=== PATIENT | female | born 1970 | race Caucasian/White ===

== ENCOUNTER → 2016-12-22 | Outpatient (CLI) | payer BC ==
[~2016-12-22] MED LIST: BIRTH CONTROL PILL; CEFDINIR300 MG PO; FLONASE ALLERG9.9 ML; IBUPROFEN PO; IBUPROFEN800 MG PO; KEFLEX250 M1 PO; LODINE400 MG PO; METOPROLOL SUCC25 MG; MULTI-VITAMIN1 TAB PO; OMEPRAZOLE20 M2 PO; PRILOSEC40 MG PO; SINGULAIR PO; SKELAXIN PO; SYMBICORT80 INH; VICODIN 5/1 TAB 5/50 PO; VICODIN PO; ZYRTEC PO; ZYRTEC10 M2 PO
[2016-12-22 12:53] LABS: THYROID STIMULATING HORMONE 2.4 uIU/ml (0.34-5.60)
[2016-12-22 13:00] LABS: FREE THYROXIN (T4) 0.83 ng/dL (0.58-1.64)
[2016-12-22 13:08] LABS: FOLATE (FOLIC ACID) 14.6 ng/mL (>5.8)
[2016-12-26 12:36] LABS: ANA SCREEN Negative (Negative); DHEA SULFATE 70 mcg/dL (19-231); TESTOSTERONE FREE (PNL) 2.3 pg/mL (0.1-6.4); TESTOSTERONE TOTAL(PNL) 19 ng/dL (2-45)
== END | disposition home or self-care (01) ==
LOC: CLAB 10:52
PROVIDERS: Specialist
DX: L65.8 Other specified nonscarring hair loss (principal); L72.0 Epidermal cyst; L85.3 Xerosis cutis; L30.0 Nummular dermatitis; L30.4 Erythema intertrigo; D48.5 Neoplasm of uncertain behavior of skin
CPT/HCPCS: 36415; 82306; 82607; 82626; 82652; 82728; 82746; 84402; 84403; 84439; 84443; 84630; 86038; 86039

== ENCOUNTER → 2016-12-30 | Day surgery (SDC) | payer BC ==
--- NOTE | ~2016-12-30 | OR ---
Unit #: [id number] #: [id number] Patient: NAMITA HOLLIDAY [id number] [address] [id number] O MR#: [id number] NAME: NAMITA HOLLIDAY ROOM: Date of Procedure: 12/30/2016 Admission Date: 12/30/2016 Surgeon: Sachin Anderson M.D. : 1970 Attending Physician: Sachin Anderson M.D. Primary Care Physician: Panchito Rosales M.D. OPERATIVE REPORT PROCEDURES PERFORMED Esophagogastroduodenoscopy with biopsy, esophagogastroduodenoscopy with balloon dilatation. INDICATIONS FOR PROCEDURE The patient with history of chronic GERD symptoms persistent, undergoing evaluation with upper endoscopy. MEDICATIONS Monitored anesthesia. POSTOPERATIVE FINDINGS 1. Esophageal ring at GE junction at 38 cm, dilated with 20 mm. 2. Hiatal hernia. 3. Mild gastritis. Biopsies taken. 4. Normal duodenum and distal duodenum. PLAN 1. Continue PPI therapy. 2. Avoid NSAIDs. 3. Follow up in the office in 6 to 8 weeks' time. DESCRIPTION OF PROCEDURE The patient was explained the procedure, risks, and benefits along with the risks and benefits of anesthesia. She was brought to the endoscopy room. Propofol anesthesia was given. Bite block was placed. The scope was passed down the mouth into the esophagus, stomach, duodenum, and distal duodenum. Findings as described. Biopsies taken. Dilation was then carried out successfully. Gently, the scope was pulled out. She tolerated it well. Dictated by... Sincere Bundy/norbert TD: 12/30/2016 15:43 JOB #: [id number] Unit #: [id number] #: [id number] Patient: NAMITA HOLLIDAY OPERATIVE REPORT Page 1 of 1 X Sachin Anderson MD X PROCEDURE OPERATIVE NOTE
== END | disposition home or self-care (01) ==
LOC: COPS 06:41
DX: K29.50 Unspecified chronic gastritis without bleeding (principal); K22.2 Esophageal obstruction; K44.9 Diaphragmatic hernia without obstruction or gangrene; J45.909 Unspecified asthma, uncomplicated; K21.9 Gastro-esophageal reflux disease without esophagitis; G47.30 Sleep apnea, unspecified; E66.9 Obesity, unspecified; Z68.43 Body mass index [BMI] 50.0-59.9, adult; Z88.2 Allergy status to sulfonamides; Z88.5 Allergy status to narcotic agent; Z88.1 Allergy status to other antibiotic agents; Z91.040 Latex allergy status; Z79.51 Long term (current) use of inhaled steroids; Z79.899 Other long term (current) drug therapy; Z98.890 Other specified postprocedural states
CPT/HCPCS: 84703; 88305; 88312; J2250